=== PATIENT | female | born 1995 ===

== ENCOUNTER 2017-07-29 13:54 | Observation (INO) | payer MEDICAID, OTHER ==
[2017-07-29] MEDS ORDERED: Sodium Chloride 0.9% 1,000 ML IV STA ×2 (14:28→18:39)
[2017-07-29 15:02] LABS: BASO # 0.1 K/uL (0.0-0.2); BASO % 0.7 % (0.0-2.0); EOS # 0.3 K/uL (0.0-0.7); EOS % 2.1 % (0.0-4.0); HEMOGLOBIN 15.1 g/dL (12.0-16.0); LYMPH # 2.4 K/uL (1.0-4.3); LYMPH % 19.9 % (20.0-40.0); MEAN CORPUSCULAR HEMOGLOBIN 29.5 pg (27.0-31.0); MEAN CORPUSCULAR HGB CONC 33.5 g/dL (33.0-37.0); MEAN PLATELET VOLUME 10.2 fl (7.2-11.7); MONO # 0.8 K/uL (0.0-0.8); MONO % 6.4 % (0.0-10.0); NEUT # 8.5 K/uL (1.8-7.0); NEUT % 70.9 % (50.0-75.0); RBC 5.12 Mil/uL (3.80-5.20); RED CELL DISTRIBUTION WIDTH 13.7 % (11.5-14.5)
--- NOTE | 2017-07-29 15:16 | ED PDOC ---
HPI: Abdomen Time Seen by Provider: 07/29/17 14:20 Chief Complaint (Nursing): Abdominal Pain History Per: Patient Additional Complaint(s): Pt. states at approximately 0930 today she developed LLQ abdominal pain associated with nausea but no vomiting. Further states she's also had constipation this morning. Reports she was only able to pass a small amount of stool which was also very hard. Denies fever, diarrhea, melena, hematochezia, BRBPR, dysuria, hematuria, pelvic pain. Past Medical History Reviewed: Historical Data, Nursing Documentation, Vital Signs Vital Signs: Last Vital Signs Temp 98.2 F 07/29/17 14:13 Pulse 78 07/29/17 14:13 Resp 18 07/29/17 14:13 BP 152/103 H 07/29/17 14:13 Pulse Ox 99 07/29/17 18:47 - Medical History PMH: No Chronic Diseases - Surgical History Surgical History: No Surg Hx - Family History Family History: States: No Known Family Hx - Home Medications Home Medications: Ambulatory Orders Medication Instructions Recorded No Known Home Med 07/29/17 - Allergies Allergies/Adverse Reactions: Allergies Allergy/AdvReac Type Severity Reaction Status Date / Time No Known Allergies Allergy Verified 07/29/17 14:13 Review of Systems ROS Statement: Except As Marked, All Systems Reviewed And Found Negative Gastrointestinal: Positive for: Nausea, Abdominal Pain Physical Exam - Physical Exam Appears: Positive for: Well, Non-toxic, No Acute Distress Skin: Positive for: Normal Color, Warm. Negative for: Rash Eye Exam: Positive for: Normal appearance Cardiovascular/Chest: Positive for: Regular Rate, Rhythm Respiratory: Positive for: CNT, Normal Breath Sounds Gastrointestinal/Abdominal: Positive for: Normal Exam, Soft. Negative for: Tenderness Back: Positive for: Normal Inspection. Negative for: L CVA Tenderness, R CVA Tenderness Neurologic/Psych: Positive for: Alert, Oriented - Laboratory Results Result Diagrams: 07/29/17 14:56 07/29/17 14:56 Urine POC: Negative - ECG O2 Sat by Pulse Oximetry: 99 - Progress ED Course And Treament: Labs, UA ordered. 1520 WBC: 12 CT abd/pelvis w/ IV contrast ordered. 1845 CT abd/pelvis w/ IV contrast: A 6.6 mm calculus obstructs the left UPJ resulting in mild left hydronephrosis and trace left perinephric reaction. A few punctate intrarenal calculi are seen at the left kidney which are nonobstructive CAD. No right hydronephrosis although mild right staghorn calculus identified. Case d/w Dr. Norman who recommends admission for stent placement tomorrow. . Requests that pt be hydrated and to be NPO after midnight. Case d/w Dr. Bourgeois and arrangements made for 23 hour observation. Disposition - Clinical Impression Clinical Impression: Nephrolithiasis - Patient ED Disposition Is Patient to be Admitted: No - Disposition Disposition: Routine/Home Disposition Time: 18:50 Condition: STABLE
[2017-07-29 15:56] LABS: SQUAMOUS EPITHIAL 3 /hpf (0-5); URINE AMORPHOUS SEDIMENT RARE /ul (<OCC); URINE BILIRUBIN NEGATIVE (NEGATIVE); URINE BLOOD LARGE (NEGATIVE); URINE CLARITY CLOUDY (Clear); URINE COLOR YELLOW (YELLOW); URINE GLUCOSE (UA) NEG (Normal); URINE LEUKOCYTE ESTERASE MOD Leu/uL (Negative); URINE PROTEIN 100 mg/dL (NEGATIVE)
[2017-07-29 16:13] LABS: ALB/GLOB RATIO 1.1 (1.0-2.1); ALBUMIN 4.8 g/dL (3.5-5.0); ALT/SGPT 54 U/L (9-52); AST/SGOT 61 U/L (14-36); BLOOD UREA NITROGEN 14 mg/dl (7-17); CALCIUM 9.5 mg/dL (8.4-10.2); GFR AFRICAN-AMERICAN > 60; GFR NON-AFRICAN AMERICAN > 60
[2017-07-29] MEDS ORDERED: Sodium Chloride 0.9% 50 ML IV ONE (16:25)
[2017-07-29] MEDS ORDERED: Iohexol 300 100 ML IJ ONE (16:25)
--- NOTE | 2017-07-29 17:57 | CT ---
PROCEDURE: CT Abdomen and Pelvis with contrast HISTORY: LLQ pain; leukocytosis COMPARISON: None. TECHNIQUE: Following the intravenous administration of iodinated contrast material, a CT examination of the abdomen and pelvis performed from the domes of the diaphragms to the symphysis pubis with reformatted datasets provided not only axial but also sagittal and coronal planes. Oral contrast was not administered as per referring physician request. Contrast dose: Omnipaque 300, 95 cc Radiation dose: Total exam DLP = 880.95 MGy-cm. This CT exam was performed using one or more of the following dose reduction techniques: Automated exposure control, adjustment of the mA and/or kV according to patient size, and/or use of iterative reconstruction technique. FINDINGS: LOWER THORAX: Limited bilateral basilar atelectasis identified. LIVER: Diffuse fatty infiltration liver is appreciate without focal mass or intrahepatic biliary dilatation. GALLBLADDER AND BILE DUCTS: Unremarkable. PANCREAS: Unremarkable. No gross lesion or ductal dilatation. SPLEEN: Unremarkable. ADRENALS: Unremarkable. No mass. KIDNEYS AND URETERS: No right hydronephrosis. A mild right staghorn calculus is present however. Multiple punctate intrarenal calculi identified at the left kidney with a 6.6 mm calculus obstructing left ureteropelvic junction and causing mild left hydronephrosis. Trace left perinephric reaction is identified. VASCULATURE: Unremarkable. No aortic aneurysm. BOWEL: Unremarkable. No obstruction. No gross mural thickening. APPENDIX: Normal appendix. PERITONEUM: Unremarkable. No free fluid. No free air. LYMPH NODES: Unremarkable. No enlarged lymph nodes. BLADDER: Unremarkable. REPRODUCTIVE: Unremarkable. BONES: No acute fracture. OTHER FINDINGS: None. IMPRESSION: A 6.6 mm calculus obstructs the left UPJ resulting in mild left hydronephrosis and trace left perinephric reaction. A few punctate intrarenal calculi are seen at the left kidney which are nonobstructive CAD. No right hydronephrosis although mild right staghorn calculus identified. Fatty liver.
[2017-07-29] MEDS ORDERED: cefTRIAXone (Rocephin) 1 gm Inj ONE (18:47)
--- NOTE | 2017-07-29 19:18 | CP.PCM.HP ---
History of Present Illness - History of Present Illness History of Present Illness: CC: Abdominal pain This is a 21 year old female with obesity, no other medical problems, presenting with LLQ abdominal pain, sharp, crampy, radiating to the back and left groin, associated with nausea and nb/nb vomiting since this morning. She also c/o constipation this morning. In the ED, the patient was found to have a 6.6 mm stone obstructing the left UPJ, along with a small non obstructing right sided staghorn calculi. Hepatic steatosis also was noted on CT scan. Dr. Norman , urologist, was consulted and place left sided stent tomorrow. Patient is being placed on observation for pain control and monitoring overnight. Present on Admission - Present on Admission Any Indicators Present on Admission: No History of DVT/PE: No History of Uncontrolled Diabetes: No Review of Systems - Review of Systems Review of Systems: A 12 point review of systems was conducted and found to be negative other than what was mentioned in the HPI. Past Patient History - Infectious Disease Hx of Infectious Diseases: None - Past Medical History & Family History Past Medical History?: No Past Family History: Reviewed and not pertinent - Past Social History Smoking Status: Never Smoked Alcohol: Occasional Drugs: Denies Home Situation {Lives}: With Family - PSYCHIATRIC Hx Substance Use: No Meds Allergies/Adverse Reactions: Allergies Allergy/AdvReac Type Severity Reaction Status Date / Time No Known Allergies Allergy Verified 07/29/17 14:13 Physical Exam - Additional Findings Additional findings: Physical exam: Constitutional- cooperative, awake, alert Head- NCAT, PERRL Eye- PERRL, EOMI ENT- normal exam, MMM. Neck- normal inspection, supple, no JVD Respiratory- CTAB, no wheezes rales rhonchi Cardiovascular- RRR, +S1, +S2 no MRG GI/Abdominal- LLQ abdominal pain radiating to the groin and left flank. normal bowel sounds, soft, no mass, no hsm Skin- warm, dry Extremities Exam- normal capillary refill, normal inspection Neurological Exam- alert, awake, oriented Psych- normal mood, normal affect Results - Vital Signs Recent Vital Signs: Last Vital Signs Temp 98.2 F 07/29/17 14:13 Pulse 78 07/29/17 14:13 Resp 18 07/29/17 14:13 BP 152/103 H 07/29/17 14:13 Pulse Ox 99 07/29/17 18:47 - Labs Result Diagrams: 07/29/17 14:56 07/29/17 14:56 Labs: Laboratory Results - last 24 hr 07/29/17 07/29/17 07/29/17 14:56 14:56 14:56 WBC 12.0 H RBC 5.12 Hgb 15.1 Hct 45.0 MCV 88.0 MCH 29.5 MCHC 33.5 RDW 13.7 Plt Count 268 MPV 10.2 Neut % (Auto) 70.9 Lymph % (Auto) 19.9 L [place] % (Auto) 6.4 Eos % (Auto) 2.1 Baso % (Auto) 0.7 Neut # (Auto) 8.5 H Lymph # (Auto) 2.4 [place] # (Auto) 0.8 Eos # (Auto) 0.3 Baso # (Auto) 0.1 Sodium 142 Potassium 3.6 Chloride 101 Carbon Dioxide 24 Anion Gap 21 H BUN 14 Creatinine 0.6 L Est GFR ( Amer) > 60 Est GFR (Non-Af Amer) > 60 Random Glucose 116 H Calcium 9.5 Total Bilirubin 1.3 AST 61 H ALT 54 H Alkaline Phosphatase 77 Total Protein 9.2 H Albumin 4.8 Globulin 4.4 H Albumin/Globulin Ratio 1.1 Urine Color Yellow Urine Clarity Cloudy Urine pH 7.0 Ur Specific [place] 1.015 Urine Protein 100 Urine Glucose (UA) Neg Urine Ketones Negative Urine Blood Large Urine Nitrate Negative Urine Bilirubin Negative Urine Urobilinogen 2.0 H Ur Leukocyte Esterase Mod Urine RBC (Auto) 598 H Urine Microscopic WBC 53 H Ur Squamous Epith Cells 3 Amorphous Sediment Rare H Assessment & Plan - Assessment and Plan (Free Text) Plan: ASSESSMENT/PLAN This is a 21 year old female with obesity, no other medical problems, presenting with LLQ abdominal pain, sharp, crampy, radiating to the back and left groin, associated with nausea and nb/nb vomiting since this morning. She also c/o constipation this morning. In the ED, the patient was found to have a 6.6 mm stone obstructing the left UPJ, along with a small non obstructing right sided staghorn calculi. Hepatic steatosis also was noted on CT scan. Dr. Norman , urologist, was consulted and place left sided stent tomorrow. Patient is being placed on observation for pain control and monitoring overnight. 1) Obstructing left sided stone in UPJ, 6.6 mm - Place on med/surg obs - Consultation with Dr. Norman, urology - Patient is at acceptable risk for urologic procedure and may proceed. - NPO at midnight for stent placement - Toradol for analgesia - NS at 125 cc/hour - Flomax - Zofran for N/V 2) UTI secondary to nephrolithiasis - Rocephin 1 gram IVPB daily - UCX pending 3) Obesity - chronic 4) DVT prophylaxis - Heparin
[2017-07-29 20:04] LABS: VENOUS BLOOD GAS BASE EXCESS 3.8 mmol/L (0.0-2.0); VENOUS BLOOD GAS PCO2 56 mmHg (40-60); VENOUS BLOOD GAS PO2 19 mm/Hg (30-55); VENOUS BLOOD PH 7.35 (7.32-7.43)
[2017-07-29] MEDS: Sodium Chloride 0.9% 1,000 ML IV SCH (21:02)
[2017-07-30] MEDS: Sodium Chloride 0.9% 1,000 ML IV SCH ×2 (03:00→10:29)
[2017-07-30 06:23] LABS: HEMOGLOBIN 13.3 g/dL (12.0-16.0); MEAN CELL VOLUME 89.2 fl (81.0-99.0); MEAN CORPUSCULAR HEMOGLOBIN 29.9 pg (27.0-31.0); MEAN CORPUSCULAR HGB CONC 33.5 g/dL (33.0-37.0); RBC 4.45 Mil/uL (3.80-5.20); RED CELL DISTRIBUTION WIDTH 13.5 % (11.5-14.5); WHITE BLOOD COUNT 8.9 K/uL (4.8-10.8)
[2017-07-30 06:38] LABS: BLOOD UREA NITROGEN 9 mg/dl (7-17); CALCIUM 8.3 mg/dL (8.4-10.2); GFR AFRICAN-AMERICAN > 60; GFR NON-AFRICAN AMERICAN > 60
[2017-07-30] MEDS ORDERED: Potassium Chloride 20 mEq 100 ML IVPB ONE (08:54)
[2017-07-30] MEDS ORDERED: Propofol 10 mg/ml Inj (20 ML) ONE (13:19)
[2017-07-30] MEDS ORDERED: Midazolam 2 MG/2 ML VIAL ONE (13:41)
[2017-07-30] MEDS ORDERED: Sodium Chloride 0.9% 1,000 ML IV ONE (13:50)
[2017-07-30] MEDS ORDERED: Ciprofloxacin 400mg/200ml D5W 400 MG/200 ML BAG IVPB ONE (13:59)
[2017-07-30] MEDS ORDERED: Ciprofloxacin 400mg/200ml D5W IVPB ONE (14:00)
[2017-07-30] MEDS ORDERED: Sodium Chloride 0.9% 500 ML IV ONE (14:20)
--- NOTE | 2017-07-30 16:39 | RAD ---
PROCEDURE: Intraoperative Fluoroscopy. HISTORY: CYSTO FINDINGS: Fluoroscopic assistance was provided for cystography and stent placement on the left. Please refer to the operative report from ISABEL Lozano.
--- NOTE | 2017-07-30 16:46 | CP.PCM.DIS ---
Provider - Provider Date of Admission: 07/29/17 18:47 Attending physician: Smith Bourgeois DO Consults: Urology: Dr Norman Time Spent in preparation of Discharge (in minutes): 25 Diagnosis - Discharge Diagnosis (1) Ureterolithiasis Status: Acute (2) UTI (urinary tract infection) Status: Acute Hospital Course - Lab Results Lab Results: Most Recent Lab Values WBC 8.9 K/uL (4.8-10.8) 07/30/17 05:20 RBC 4.45 Mil/uL (3.80-5.20) 07/30/17 05:20 Hgb 13.3 g/dL (12.0-16.0) 07/30/17 05:20 Hct 39.7 % (34.0-47.0) 07/30/17 05:20 MCV 89.2 fl (81.0-99.0) 07/30/17 05:20 MCH 29.9 pg (27.0-31.0) 07/30/17 05:20 MCHC 33.5 g/dL (33.0-37.0) 07/30/17 05:20 RDW 13.5 % (11.5-14.5) 07/30/17 05:20 Plt Count 218 K/uL (130-400) 07/30/17 05:20 MPV 10.2 fl (7.2-11.7) 07/29/17 14:56 Neut % (Auto) 70.9 % (50.0-75.0) 07/29/17 14:56 Lymph % (Auto) 19.9 % (20.0-40.0) L 07/29/17 14:56 [place] % (Auto) 6.4 % (0.0-10.0) 07/29/17 14:56 Eos % (Auto) 2.1 % (0.0-4.0) 07/29/17 14:56 Baso % (Auto) 0.7 % (0.0-2.0) 07/29/17 14:56 Neut # (Auto) 8.5 K/uL (1.8-7.0) H 07/29/17 14:56 Lymph # (Auto) 2.4 K/uL (1.0-4.3) 07/29/17 14:56 [place] # (Auto) 0.8 K/uL (0.0-0.8) 07/29/17 14:56 Eos # (Auto) 0.3 K/uL (0.0-0.7) 07/29/17 14:56 Baso # (Auto) 0.1 K/uL (0.0-0.2) 07/29/17 14:56 pO2 19 mm/Hg (30-55) L 07/29/17 19:57 VBG pH 7.35 (7.32-7.43) 07/29/17 19:57 VBG pCO2 56 mmHg (40-60) 07/29/17 19:57 VBG HCO3 26.0 mmol/L 07/29/17 19:57 VBG Total CO2 32.6 mmol/L (22-28) H 07/29/17 19:57 VBG O2 Sat (Calc) 26.5 % (40-65) L 07/29/17 19:57 VBG Base Excess 3.8 mmol/L (0.0-2.0) H 07/29/17 19:57 VBG Potassium 3.3 mmol/L (3.6-5.2) L 07/29/17 19:57 Sodium 140.0 mmol/L (132-148) 07/29/17 19:57 Chloride 105.0 mmol/L (98-107) 07/29/17 19:57 Glucose 100 mg/dL (65-105) 07/29/17 19:57 Lactate 1.0 mmol/L (0.7-2.1) 07/29/17 19:57 FiO2 21.0 % 07/29/17 19:57 Sodium 141 mmol/l (132-148) 07/30/17 05:20 Potassium 3.2 MMOL/L (3.6-5.0) L 07/30/17 05:20 Chloride 103 mmol/L (98-107) 07/30/17 05:20 Carbon Dioxide 24 mmol/L (22-30) 07/30/17 05:20 Anion Gap 17 (10-20) 07/30/17 05:20 BUN 9 mg/dl (7-17) 07/30/17 05:20 Creatinine 0.5 mg/dl (0.7-1.2) L 07/30/17 05:20 Est GFR ( Amer) > 60 07/30/17 05:20 Est GFR (Non-Af Amer) > 60 07/30/17 05:20 Random Glucose 97 mg/dL (65-105) 07/30/17 05:20 Calcium 8.3 mg/dL (8.4-10.2) L 07/30/17 05:20 Total Bilirubin 1.3 mg/dl (0.2-1.3) 07/29/17 14:56 AST 61 U/L (14-36) H 07/29/17 14:56 ALT 54 U/L (9-52) H 07/29/17 14:56 Alkaline Phosphatase 77 U/L (38-126) 07/29/17 14:56 Total Protein 9.2 G/DL (6.3-8.2) H 07/29/17 14:56 Albumin 4.8 g/dL (3.5-5.0) 07/29/17 14:56 Globulin 4.4 gm/dL (2.2-3.9) H 07/29/17 14:56 Albumin/Globulin Ratio 1.1 (1.0-2.1) 07/29/17 14:56 Venous Blood Potassium 3.3 mmol/L (3.6-5.2) L 07/29/17 19:57 Urine Color Yellow (YELLOW) 07/29/17 14:56 Urine Clarity Cloudy (Clear) 07/29/17 14:56 Urine pH 7.0 (5.0-8.0) 07/29/17 14:56 Ur Specific [place] 1.015 (1.003-1.030) 07/29/17 14:56 Urine Protein 100 mg/dL (NEGATIVE) 07/29/17 14:56 Urine Glucose (UA) Neg mg/dL (Normal) 07/29/17 14:56 Urine Ketones Negative mg/dL (NEGATIVE) 07/29/17 14:56 Urine Blood Large (NEGATIVE) 07/29/17 14:56 Urine Nitrate Negative (NEGATIVE) 07/29/17 14:56 Urine Bilirubin Negative (NEGATIVE) 07/29/17 14:56 Urine Urobilinogen 2.0 mg/dL (0.2-1.0) H 07/29/17 14:56 Ur Leukocyte Esterase Mod [place]/uL (Negative) 07/29/17 14:56 Urine RBC (Auto) 598 /hpf (0-3) H 07/29/17 14:56 Urine Microscopic WBC 53 /hpf (0-5) H 07/29/17 14:56 Ur Squamous Epith Cells 3 /hpf (0-5) 07/29/17 14:56 Amorphous Sediment Rare /ul (<OCC) H 07/29/17 14:56 - Hospital Course Hospital Course: This is a 21 year old female with obesity, no other medical problems, presented with LLQ abdominal pain, sharp, crampy, radiating to the back and left groin, associated with nausea and nb/nb vomiting x 1 day . In the ED, the patient was found to have a 6.6 mm stone obstructing the left UPJ, along with a small non obstructing right sided staghorn calculi. Hepatic steatosis also was noted on CT scan. Dr. Norman, urologist, was consulted and placed left sided stent. 1) Ureterolithiasis - Obstructing left sided stone in UPJ, 6.6 mm - Consultation with Dr. Norman, urology - s/p Left Ureteral stent placement - Toradol for analgesia - NS at 125 cc/hour - Flomax - Zofran for N/V - Pt cleared by Ester for d/c post Stent placment - Rx for Tylenol #3 and Marobic given by Dr Norman 2) UTI - Rocephin 1 gram IVPB daily - UCX pending - Rx for Macrobid given by Dr Norman 3) Obesity , BMI 32.1 - chronic 4) DVT prophylaxis - SCD Discharge Exam - Head Exam Head Exam: ATRAUMATIC, NORMAL INSPECTION, NORMOCEPHALIC - Eye Exam Eye Exam: EOMI, Normal appearance, PERRL - ENT Exam ENT Exam: Mucous Membranes Moist, Normal External Ear Exam - Neck Exam Neck exam: Full Rom - Respiratory Exam Respiratory Exam: NORMAL BREATHING PATTERN. absent: Respiratory Distress - Cardiovascular Exam Cardiovascular Exam: REGULAR RHYTHM, +S1, +S2 - GI/Abdominal Exam GI & Abdominal Exam: Normal Bowel Sounds, Soft. absent: Tenderness - Extremities Exam Extremities exam: full ROM, normal capillary refill, pedal pulses present - Back Exam Back exam: FULL ROM. absent: CVA tenderness (L), CVA tenderness (R) - Neurological Exam Neurological exam: Alert, CN II-XII Intact, Oriented x3, Reflexes Normal - Psychiatric Exam Psychiatric exam: Normal Affect, Normal Mood - Skin Skin Exam: Dry, Normal Color, Warm Discharge Plan - Discharge Medications Prescriptions: Acetaminophen with Codeine [Tylenol with Codeine No. 3 300 mg-30 mg] 1 tab PO Q8 PRN #1 tab PRN Reason: Pain, Moderate (4-7) Nitrofurantoin Macrocrystals [Macrobid] 100 mg PO BID #1 cap - Follow Up Plan Condition: IMPROVED Disposition: HOME/ ROUTINE Additional Instructions: ff up with Dr Norman in 1 wk ff up at the [facility] for Lithotripsy appt FP clinic in 1 wk Referrals: [facility] [place] [Outside] Candelario Norman MD [Medical Doctor] -
[2017-07-30 20:08] VITALS: TEMP 97.8; O2SAT 97
[2017-07-30 20:09] VITALS: PULSE 82
[2017-07-30 20:10] VITALS: BP 129/84; RESP 18
--- NOTE | 2017-08-01 13:10 | OP ---
PROCEDURE DATE: 07/30/2017 SURGEON: Candelario Norman MD PREOP DIAGNOSIS: obstructed left kidney POSTOP DIAGNOSIS: same ANESTHESIOLOGIST: Emile marroquin MD ANESTHESIA: General PROCEDURE: Cystoscopy with stent placement DESCRIPTION OF PROCEDURE: The patient was brought to the OR for stent insertion for an obstructed left kidney. The patient was prepped and draped in usual manner. General anesthesia given. The patient was placed in lithotomy position, a #21 cystourethroscope was introduced into the bladder. A 3.5 wire was entered into the left orifice, into the kidney. Double J stent was left over the wire and the wire removed. The stent was in good position. Calculus to be noted in the left kidney. She will be followed for evaluation for a laser lithotripsy. POSTOP CONDITION: Patient tolerated procedure well. Candelario Norman MD
== END 2017-07-30 19:30 | disposition home or self-care (01) ==
LOC: H.ER 13:54 → H.ERHOLD 18:47 → H.MEDSURG1 22:47
PROVIDERS: ADMIT Internal Medicine; ATTEND Internal Medicine
DX: N13.6 Pyonephrosis (principal); E66.9 Obesity, unspecified; K59.00 Constipation, unspecified; K76.0 Fatty (change of) liver, not elsewhere classified; Z68.32 Body mass index [BMI] 32.0-32.9, adult
CPT/HCPCS: 36415; 52282; 74177; 76000; 80048; 80053; 81003; 81025; 82803; 85025; 85027; 96360; 96361; 96365; 96374; 96375; 96376; 99285; C2617; G0378; J0696; J0744; J1885; J2001; J2250; J2270; J2704; J3010; J3480; J7030; Q9967